=== PATIENT | female | born 1955 | race American Indian/Alaskan Native ===

== ENCOUNTER 2016-12-05 14:10 | Emergency (ER) | payer OTHER ==
[2016-12-05 14:36] VITALS: BP 136/58
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
[2016-12-05] MEDS ORDERED: TORADOL IM ONE (16:23)
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
== END 2016-12-05 18:18 | disposition home or self-care (01) ==
LOC: ED 14:10
DX: M25.561 Pain in right knee (principal); I10 Essential (primary) hypertension; M19.90 Unspecified osteoarthritis, unspecified site; E78.00 Pure hypercholesterolemia, unspecified; Z79.82 Long term (current) use of aspirin; V89.2XXD Person injured in unspecified motor-vehicle accident, traffic, subsequent encounter
CPT/HCPCS: 29505; 73562; 96372; 99283; J1885

== ENCOUNTER 2017-05-16 14:58 | Emergency (ER) | payer SELFPAY ==
[2017-05-16 15:03] VITALS: BP 164/65
--- NOTE | 2017-05-16 18:35 | Emergency Department Report ---
History of Present Illness - General Chief Complaint: Eye Problems Stated Complaint: BOTH EYES ITCHY/EAR ACHE Time Seen by Provider: 05/16/17 16:58 Source: patient Mode of arrival: Ambulatory Limitations: No Limitations - History of Present Illness Initial Comments: Patient is a 8-year-old [place] female who is presenting with bilateral eye burning. Patient states this has minimal drainage. His present for approximately a week. Patient has some mild congestion and sinus irritation as well. - Related Data Home Medications Medication Instructions Recorded Confirmed Last Taken Aspirin [Ecotrin] 81 mg PO 02/08/13 02/08/13 02/08/13 Biotin 5 mg PO DAILY 02/08/13 02/08/13 02/08/13 Ibuprofen [Motrin] 600 mg PO BID 02/08/13 02/08/13 02/08/13 Multivitamin [Multi Vitamin Daily] 02/08/13 02/08/13 02/08/13 [place]-3S/Dha/Epa/Fish Oil [Fish 1,200 mg 02/08/13 02/08/13 02/08/13 Oil EC 1,200 mg Softgel] Irbesartan/Hydrochlorothiazide 1 each PO DAILY 10/15/15 10/15/15 Unknown [Irbesartan-Hctz 150-12.5 mg Tb] Vortioxetine Hydrobromide 20 mg PO DAILY 10/15/15 10/15/15 Unknown [Trintellix] Previous Rx's Medication Instructions Recorded Last Taken Type Carvedilol [Coreg] 12.5 mg PO BID #60 tablet 03/25/14 Unknown Rx Carvedilol [Coreg] 12.5 mg PO BID #60 tablet 03/25/14 Unknown Rx Simvastatin 20 mg PO QHS #30 tablet 03/25/14 Unknown Rx Simvastatin [Zocor TAB] 20 mg PO QHS #30 tablet 03/25/14 Unknown Rx Naproxen [Naprosyn] 500 mg PO BID #20 tablet 10/15/15 Unknown Rx traMADol [Ultram] 50 mg PO Q6HR PRN #15 tablet 12/05/16 Unknown Rx Loratadine [Claritin] 10 mg PO DAILY #30 tablet 05/16/17 Unknown Rx Olopatadine HCl [Patanol] 5 ml OP BID #1 bottle 05/16/17 Unknown Rx Allergies Allergy/AdvReac Type Severity Reaction Status Date / Time No Known Allergies Allergy Verified 05/16/17 15:01 ED Review of Systems ROS: Stated complaint: BOTH EYES ITCHY/EAR ACHE Other details as noted in HPI Comment: All other systems reviewed and negative ED Past Medical Hx - Past Medical History Hx Hypertension: Yes Hx Arthritis: Yes Hx Psychiatric Treatment: Yes (DEPRESSION) Additional medical history: HIGH cholesteroL - Surgical History Additional Surgical History: C-sections X 2 - Social History Smoking Status: Never Smoker Substance Use Type: None - Medications Home Medications: Home Medications Medication Instructions Recorded Confirmed Last Taken Type Aspirin [Ecotrin] 81 mg PO 02/08/13 02/08/13 02/08/13 History Biotin 5 mg PO DAILY 02/08/13 02/08/13 02/08/13 History Ibuprofen [Motrin] 600 mg PO BID 02/08/13 02/08/13 02/08/13 History Multivitamin [Multi Vitamin Daily] 02/08/13 02/08/13 02/08/13 History [place]-3S/Dha/Epa/Fish Oil [Fish 1,200 mg 02/08/13 02/08/13 02/08/13 History Oil EC 1,200 mg Softgel] Carvedilol [Coreg] 12.5 mg PO BID #60 tablet 03/25/14 Unknown Rx Carvedilol [Coreg] 12.5 mg PO BID #60 tablet 03/25/14 Unknown Rx Simvastatin 20 mg PO QHS #30 tablet 03/25/14 Unknown Rx Simvastatin [Zocor TAB] 20 mg PO QHS #30 tablet 03/25/14 Unknown Rx Irbesartan/Hydrochlorothiazide 1 each PO DAILY 10/15/15 10/15/15 Unknown History [Irbesartan-Hctz 150-12.5 mg Tb] Naproxen [Naprosyn] 500 mg PO BID #20 tablet 10/15/15 Unknown Rx Vortioxetine Hydrobromide 20 mg PO DAILY 10/15/15 10/15/15 Unknown History [Trintellix] traMADol [Ultram] 50 mg PO Q6HR PRN #15 tablet 12/05/16 Unknown Rx Loratadine [Claritin] 10 mg PO DAILY #30 tablet 05/16/17 Unknown Rx Olopatadine HCl [Patanol] 5 ml OP BID #1 bottle 05/16/17 Unknown Rx ED Physical Exam - General Limitations: No Limitations General appearance: alert, in no apparent distress - Head Head exam: Present: atraumatic, normocephalic - Eye Eye exam: Present: normal appearance, conjunctival injection - ENT ENT exam: Present: mucous membranes moist - Neck Neck exam: Present: normal inspection - Respiratory Respiratory exam: Present: normal lung sounds bilaterally. Absent: respiratory distress, wheezes, rales, rhonchi - Cardiovascular Cardiovascular Exam: Present: regular rate, normal rhythm. Absent: systolic murmur, diastolic murmur, rubs, gallop - GI/Abdominal GI/Abdominal exam: Present: soft, normal bowel sounds - Extremities Exam Extremities exam: Present: normal inspection - Back Exam Back exam: Present: normal inspection - Neurological Exam Neurological exam: Present: alert, oriented X3 - Psychiatric Psychiatric exam: Present: normal affect, normal mood - Skin Skin exam: Present: warm, dry, intact, normal color. Absent: rash ED Course Vital Signs 05/16/17 15:01 Temperature 98.5 F Pulse Rate 69 Respiratory 18 Rate Blood Pressure 164/65 O2 Sat by Pulse 97 Oximetry ED Medical Decision Making - Medical Decision Making Patient will be treated for a mild allergic rhinitis and be discharged home Critical care attestation.: If time is entered above; I have spent that time in minutes in the direct care of this critically ill patient, excluding procedure time. ED Disposition Clinical Impression: Allergic rhinitis Disposition: DC-01 TO HOME OR SELFCARE Is pt being admited?: No Does the pt Need Aspirin: No Condition: Stable Instructions: Olopatadine (Into the eye), Allergic Rhinitis (ED), Conjunctivitis (ED) Prescriptions: Loratadine [Claritin] 10 mg PO DAILY #30 tablet Olopatadine HCl [Patanol] 5 ml OP BID #1 bottle
== END 2017-05-16 20:08 | disposition home or self-care (01) ==
LOC: ED 14:58
DX: J30.9 Allergic rhinitis, unspecified (principal); I10 Essential (primary) hypertension; M19.90 Unspecified osteoarthritis, unspecified site; E78.00 Pure hypercholesterolemia, unspecified
CPT/HCPCS: 99282

== ENCOUNTER 2017-11-06 00:42 | Emergency (ER) | payer SELFPAY ==
[2017-11-06] MEDS ORDERED: TORADOL ONE (02:27)
[2017-11-06] MEDS ORDERED: ZOFRAN ONE ×2 (02:28→06:36)
[2017-11-06] MEDS ORDERED: TORADOL IM ONE (02:37)
[2017-11-06] MEDS ORDERED: NACL 0.9% 1000 ML 1,000 ML IV ONE (02:37)
[2017-11-06] MEDS ORDERED: ZOFRAN IM ONE (02:39)
[2017-11-06 03:05] LABS: Basophils % (Auto) 0.4 % (0.0-1.8); Eosinophils # (Auto) 0.1 K/mm3 (0.0-0.4); Eosinophils % (Auto) 2.5 % (0.0-4.3); Hematocrit 39.7 % (30.3-42.9); Lymphocytes # (Auto) 2.8 K/mm3 (1.2-5.4); Lymphocytes % (Auto) 52.1 % (13.4-35.0); Mean Corpuscular HGB Conc 33 % (30-34); Mean Corpuscular Hemoglobin 27 pg (28-32); Mean Corpuscular Volume 83 fl (79-97); Monocytes # (Auto) 0.4 K/mm3 (0.0-0.8); Monocytes % (Auto) 6.8 % (0.0-7.3); Platelet Count 220 K/mm3 (140-440); Red Blood Count 4.81 M/mm3 (3.65-5.03); Red Cell Distribution Width 15.1 % (13.2-15.2)
[2017-11-06 03:25] LABS: Alanine Aminotransferase 148 units/L (7-56); Albumin 3.9 g/dL (3.9-5); BUN/Creatinine Ratio 10; Blood Urea Nitrogen 11 mg/dL (7-17); Calcium 9.5 mg/dL (8.4-10.2); Hemolysis Index 2; Lipase 25 units/L (13-60)
[2017-11-06 06:17] LABS: Bacteria,Urine 2+ /HPF (Negative); Bilirubin,Urine NEG (Negative); Blood,Urine NEG (Negative); Color,Urine Yellow (Yellow); Mucus,Urine FEW /HPF; Protein,Urine <15 mg/dL mg/dL (Negative)
[2017-11-06] MEDS ORDERED: MORPHINE IV ONE (06:34)
[2017-11-06] MEDS ORDERED: ZOFRAN IV ONE (06:34)
[2017-11-06] MEDS ORDERED: MORPHINE ONE (06:36)
--- NOTE | 2017-11-06 07:25 | Emergency Department Report ---
ED Abdominal Pain HPI - General Chief Complaint: Abdominal Pain Stated Complaint: CHEST PAIN,NAUSEA,ABDOMINAL PAIN Time Seen by Provider: 11/06/17 07:15 Source: patient Mode of arrival: Ambulatory Limitations: No Limitations - History of Present Illness Initial Comments: Patient is 62 years old morbidly obese -Spanish female with history of hypertension and arthritis, depression and history of gallbladder stones. Patient presented to the ER complaining of epigastric and right upper quadrant pain started last night. Patient stated that pain is sharp in nature and does not radiate, associated with nausea and vomiting. She denied any diarrhea or fever. MD Complaint: abdominal pain -: Last night Location: RUQ, epigastric Radiation: none Migration to: no migration Severity: moderate, severe Severity scale (0 -10): 10 Quality: sharp Consistency: intermittent Improves With: vomiting - Related Data Home Medications Medication Instructions Recorded Confirmed Last Taken Aspirin [Ecotrin] 81 mg PO 02/08/13 02/08/13 02/08/13 Biotin 5 mg PO DAILY 02/08/13 02/08/13 02/08/13 Ibuprofen [Motrin] 600 mg PO BID 02/08/13 02/08/13 02/08/13 Multivitamin [Multi Vitamin Daily] 02/08/13 02/08/13 02/08/13 [place]-3S/Dha/Epa/Fish Oil [Fish 1,200 mg 02/08/13 02/08/13 02/08/13 Oil EC 1,200 mg Softgel] Irbesartan/Hydrochlorothiazide 1 each PO DAILY 10/15/15 10/15/15 Unknown [Irbesartan-Hctz 150-12.5 mg Tb] Vortioxetine Hydrobromide 20 mg PO DAILY 10/15/15 10/15/15 Unknown [Trintellix] Previous Rx's Medication Instructions Recorded Last Taken Type Carvedilol [Coreg] 12.5 mg PO BID #60 tablet 03/25/14 Unknown Rx Carvedilol [Coreg] 12.5 mg PO BID #60 tablet 03/25/14 Unknown Rx Simvastatin 20 mg PO QHS #30 tablet 03/25/14 Unknown Rx Simvastatin [Zocor TAB] 20 mg PO QHS #30 tablet 03/25/14 Unknown Rx Naproxen [Naprosyn] 500 mg PO BID #20 tablet 10/15/15 Unknown Rx traMADol [Ultram] 50 mg PO Q6HR PRN #15 tablet 12/05/16 Unknown Rx Loratadine [Claritin] 10 mg PO DAILY #30 tablet 05/16/17 Unknown Rx Olopatadine HCl [Patanol] 5 ml OP BID #1 bottle 05/16/17 Unknown Rx Esomeprazole Magnesium [NexIUM] 40 mg PO QDAY #30 capsule. 11/06/17 Unknown Rx HYDROcodone/APAP 5-325 [[place] 1 each PO Q6HR PRN #14 tablet 11/06/17 Unknown Rx 5/325] Ondansetron [Zofran Odt] 4 mg PO Q8HR PRN #14 tab.rapdis 11/06/17 Unknown Rx Ursodiol (Nf) [Actigall (Nf)] 300 mg PO TID #90 capsule 11/06/17 Unknown Rx Allergies Allergy/AdvReac Type Severity Reaction Status Date / Time No Known Allergies Allergy Verified 05/16/17 15:01 ED Review of Systems ROS: Stated complaint: CHEST PAIN,NAUSEA,ABDOMINAL PAIN Other details as noted in HPI Comment: All other systems reviewed and negative Constitutional: denies: chills, fever Respiratory: denies: cough, orthopnea, shortness of breath, SOB with exertion, SOB at rest, wheezing Cardiovascular: denies: chest pain, palpitations, dyspnea on exertion, syncope, paroxysmal nocturnal dyspnea Gastrointestinal: abdominal pain, nausea, vomiting. denies: diarrhea, constipation, hematemesis, melena, hematochezia Genitourinary: denies: urgency, dysuria, frequency, hematuria, discharge, abnormal menses Skin: denies: rash Neurological: denies: headache, weakness, numbness, paresthesias, confusion, abnormal gait, vertigo Psychiatric: denies: auditory hallucinations, visual hallucinations, homicidal thoughts, suicidal thoughts ED Past Medical Hx - Past Medical History Hx Hypertension: Yes Hx Arthritis: Yes Hx Psychiatric Treatment: Yes (DEPRESSION) Additional medical history: HIGH cholesteroL, Morbid Obesity, GALLBLADDER DISEASE - Surgical History Additional Surgical History: C-sections X 2 - Social History Smoking Status: Never Smoker Substance Use Type: None - Medications Home Medications: Home Medications Medication Instructions Recorded Confirmed Last Taken Type Aspirin [Ecotrin] 81 mg PO 02/08/13 02/08/13 02/08/13 History Biotin 5 mg PO DAILY 02/08/13 02/08/13 02/08/13 History Ibuprofen [Motrin] 600 mg PO BID 02/08/13 02/08/13 02/08/13 History Multivitamin [Multi Vitamin Daily] 02/08/13 02/08/13 02/08/13 History [place]-3S/Dha/Epa/Fish Oil [Fish 1,200 mg 02/08/13 02/08/13 02/08/13 History Oil EC 1,200 mg Softgel] Carvedilol [Coreg] 12.5 mg PO BID #60 tablet 03/25/14 Unknown Rx Carvedilol [Coreg] 12.5 mg PO BID #60 tablet 03/25/14 Unknown Rx Simvastatin 20 mg PO QHS #30 tablet 03/25/14 Unknown Rx Simvastatin [Zocor TAB] 20 mg PO QHS #30 tablet 03/25/14 Unknown Rx Irbesartan/Hydrochlorothiazide 1 each PO DAILY 10/15/15 10/15/15 Unknown History [Irbesartan-Hctz 150-12.5 mg Tb] Naproxen [Naprosyn] 500 mg PO BID #20 tablet 10/15/15 Unknown Rx Vortioxetine Hydrobromide 20 mg PO DAILY 10/15/15 10/15/15 Unknown History [Trintellix] traMADol [Ultram] 50 mg PO Q6HR PRN #15 tablet 12/05/16 Unknown Rx Loratadine [Claritin] 10 mg PO DAILY #30 tablet 05/16/17 Unknown Rx Olopatadine HCl [Patanol] 5 ml OP BID #1 bottle 05/16/17 Unknown Rx Esomeprazole Magnesium [NexIUM] 40 mg PO QDAY #30 capsule. 11/06/17 Unknown Rx HYDROcodone/APAP 5-325 [[place] 1 each PO Q6HR PRN #14 tablet 11/06/17 Unknown Rx 5/325] Ondansetron [Zofran Odt] 4 mg PO Q8HR PRN #14 tab.rapdis 11/06/17 Unknown Rx Ursodiol (Nf) [Actigall (Nf)] 300 mg PO TID #90 capsule 11/06/17 Unknown Rx ED Physical Exam - General Limitations: No Limitations General appearance: alert, in no apparent distress - Head Head exam: Present: atraumatic, normocephalic, normal inspection - Eye Eye exam: Present: normal appearance, PERRL - ENT ENT exam: Present: normal exam, normal orophraynx, mucous membranes moist, normal external ear exam - Neck Neck exam: Present: normal inspection, full ROM. Absent: tenderness, meningismus, lymphadenopathy, thyromegaly - Respiratory Respiratory exam: Present: normal lung sounds bilaterally. Absent: respiratory distress, wheezes, rales, rhonchi, stridor, chest wall tenderness, accessory muscle use, decreased breath sounds, prolonged expiratory - Cardiovascular Cardiovascular Exam: Present: regular rate, normal rhythm, normal heart sounds - GI/Abdominal GI/Abdominal exam: Present: soft, tenderness (epigastric and right upper quadrant tenderness), normal bowel sounds. Absent: distended, guarding, rebound , rigid, organomegaly, mass, bruit, pulsatile mass, hernia - Extremities Exam Extremities exam: Present: normal inspection, full ROM, normal capillary refill. Absent: pedal edema, calf tenderness - Back Exam Back exam: Present: normal inspection, full ROM. Absent: tenderness, CVA tenderness (R), CVA tenderness (L), muscle spasm, paraspinal tenderness, vertebral tenderness, rash noted - Neurological Exam Neurological exam: Present: alert, oriented X3, CN II-XII intact, normal gait, reflexes normal - Skin Skin exam: Present: warm, dry, intact, normal color ED Course Vital Signs 11/06/17 11/06/17 11/06/17 00:56 05:58 07:10 Temperature 98.9 F 97.8 F Pulse Rate 67 59 L Respiratory 16 18 16 Rate Blood Pressure 140/107 Blood Pressure 124/86 [Left] O2 Sat by Pulse 97 98 Oximetry 11/06/17 08:30 Temperature Pulse Rate 68 Respiratory 16 Rate Blood Pressure Blood Pressure 204/72 [Left] O2 Sat by Pulse 99 Oximetry ED Medical Decision Making - Lab Data Result diagrams: 11/06/17 02:42 11/06/17 Unknown - Radiology Data Radiology results: report reviewed Referring Physician: MICHAEL ISLAS Patient Name: JOVANI VILLANUEVA Date of : 1955 Sex: Female Report Date: 2017-11-06 Report Status: Finalized Findings [facility] [address] [place] [address] Ultrasound Report Signed Patient: JOVANI VILLANUEVA MR#: [id number] : 1955 Acct:[id number] Age/Sex: 62 / F ADM Date: 11/06/17 Loc: ED Attending Dr: Ordering Physician: MICHAEL ISLAS Date of Service: 11/06/17 Procedure(s): US abdomen limited Accession Number(s): [id number] cc: MICHAEL ISLAS FINAL REPORT EXAM: US ABDOMEN LIMITED HISTORY: right upper quadrant pain COMPARISON: None. TECHNIQUE: Multiple transverse and longitudinal sonographic grayscale images of the right upper quadrant of the abdomen were obtained, supplemented with Doppler imaging. FINDINGS: Pancreas: Visualized portions are normal. Liver appearance: Heterogeneous and coarse echotexture. No focal internal lesion CBD: 10.2mm. Gallbladder: There are several gallstones, measuring up to 2.1 centimeters. No pericholecystic fluid or gallbladder wall thickening. Right kidney length: 8.2 cm. Right kidney appearance: No hydronephrosis. No echogenic focus or mass. Aorta: Normal. IMPRESSION: Cholelithiasis without evidence for cholecystitis. Dilated common bile duct measuring up to 10.2 millimeters. No intraluminal mass or stone is visualized. Coarsened echotexture of the liver. No focal internal lesion. Atrophic right kidney. Transcribed By: MOY Dictated By: BEKA SÁNCHEZ MD Electronically Authenticated By: BEKA SÁNCHEZ MD Signed Date/Time: 11/06/17955 DD/ 5 TD/TT: 11/06/17955 - Medical Decision Making Patient is 62 years old morbidly obese -Spanish female with history of hypertension and arthritis, depression and history of gallbladder stones. Patient presented to the ER complaining of epigastric and right upper quadrant pain started last night. Patient stated that pain is sharp in nature and does not radiate, associated with nausea and vomiting. She denied any diarrhea or fever. Patient stated that she is feeling better. Right lower quadrant ultrasound show choledocholithiasis was out evidence of acute cholecystitis. I advised patient to follow-up with Dr. Ferrell in the next 2-3 days. Critical care attestation.: If time is entered above; I have spent that time in minutes in the direct care of this critically ill patient, excluding procedure time. ED Disposition Clinical Impression: Abdominal pain, Cholelithiasis Disposition: - TO HOME OR SELFCARE Is pt being admited?: No Condition: Stable Instructions: Biliary Colic (ED), Abdominal Pain (ED) Prescriptions: Esomeprazole Magnesium [NexIUM] 40 mg PO QDAY #30 capsule. HYDROcodone/APAP 5-325 [[place] 5/325] 1 each PO Q6HR PRN #14 tablet PRN Reason: Pain Ondansetron [Zofran Odt] 4 mg PO Q8HR PRN #14 tab.rapdis PRN Reason: Nausea And Vomiting Ursodiol (Nf) [Actigall (Nf)] 300 mg PO TID #90 capsule Referrals: TONY FERRELL DO [Staff Physician] - 3-5 Days
[2017-11-06] MEDS ORDERED: NACL 0.9% 1000 ML 1,000 ML ONE (09:57)
--- NOTE | 2017-11-06 09:58 | Ultrasound Report ---
FINAL REPORT EXAM: US ABDOMEN LIMITED HISTORY: right upper quadrant pain COMPARISON: None. TECHNIQUE: Multiple transverse and longitudinal sonographic grayscale images of the right upper quadrant of the abdomen were obtained, supplemented with Doppler imaging. FINDINGS: Pancreas: Visualized portions are normal. Liver appearance: Heterogeneous and coarse echotexture. No focal internal lesion CBD: 10.2mm. Gallbladder: There are several gallstones, measuring up to 2.1 centimeters. No pericholecystic fluid or gallbladder wall thickening. Right kidney length: 8.2 cm. Right kidney appearance: No hydronephrosis. No echogenic focus or mass. Aorta: Normal. IMPRESSION: Cholelithiasis without evidence for cholecystitis. Dilated common bile duct measuring up to 10.2 millimeters. No intraluminal mass or stone is visualized. Coarsened echotexture of the liver. No focal internal lesion. Atrophic right kidney.
[2017-11-06] MEDS ORDERED: SUBLIMAZE ONE (12:09)
[2017-11-06] MEDS ORDERED: SUBLIMAZE IV ONE (12:10)
[2017-11-06 13:00] VITALS: BP 174/86
== END 2017-11-06 13:03 | disposition home or self-care (01) ==
LOC: ED 00:42
DX: K80.20 Calculus of gallbladder without cholecystitis without obstruction (principal); I10 Essential (primary) hypertension; M19.90 Unspecified osteoarthritis, unspecified site; F32.9 Major depressive disorder, single episode, unspecified; E78.00 Pure hypercholesterolemia, unspecified; E66.01 Morbid (severe) obesity due to excess calories
CPT/HCPCS: 36415; 76705; 80053; 81001; 83690; 84484; 85025; 93005; 93010; 96361; 96372; 96374; 96375; 99284; J1885; J2270; J2405; J3010; J7030

== ENCOUNTER 2021-04-13 09:10 | Emergency (ER) | payer SELFPAY ==
[2021-04-13] MEDS ORDERED: MORPHINE 4 MG/1 ML INJ IV ONE ×2 (09:18→11:40)
[2021-04-13] MEDS ORDERED: ONDANSETRON 4 MG/2 ML INJ IV ONE (09:18)
[2021-04-13] MEDS ORDERED: SODIUM CHLORIDE 0.9% 1000 ML 1,000 ML IV ONE (09:18)
[2021-04-13 10:44] LABS: Basophils % (Auto) 0.4 % (0.0-1.8); Eosinophils # (Auto) 0.1 K/mm3 (0.0-0.4); Eosinophils % (Auto) 0.8 % (0.0-4.3); Hematocrit 39.4 % (30.3-42.9); Lymphocytes # (Auto) 1.9 K/mm3 (1.2-5.4); Lymphocytes % (Auto) 23.1 % (13.4-35.0); Mean Corpuscular HGB Conc 33 % (30-34); Mean Corpuscular Volume 81 fl (79-97); Monocytes # (Auto) 0.4 K/mm3 (0.0-0.8); Monocytes % (Auto) 4.9 % (0.0-7.3); Platelet Count 291 K/mm3 (140-440); Red Blood Count 4.84 M/mm3 (3.65-5.03); Red Cell Distribution Width 14.5 % (13.2-15.2)
[2021-04-13 10:51] LABS: INR 0.92 (0.87-1.13)
[2021-04-13 11:05] LABS: Alanine Aminotransferase 17 units/L (7-56); Albumin 3.9 g/dL (3.9-5); BUN/Creatinine Ratio 20; Blood Urea Nitrogen 20 mg/dL (7-17); Calcium 9.4 mg/dL (8.4-10.2); Hemolysis Index 8
[2021-04-13 11:08] LABS: Bilirubin,Direct < 0.2 mg/dL (0-0.2)
[2021-04-13 12:21] LABS: Bacteria,Urine 1+ /HPF (Negative); WBC,Urine < 1.0 /HPF (0.0-6.0)
--- NOTE | 2021-04-13 12:33 | Cat Scan Report ---
CT ABDOMEN AND PELVIS WITH CONTRAST INDICATION / CLINICAL INFORMATION: pain OMNI 300 100 ML. TECHNIQUE: Axial CT images were obtained through the abdomen and pelvis after 100 cc of Omnipaque 300 IV contras t. Sagittal and coronal reformatted images. All CT scans at this location are performed using CT dose reduction for ALARA by means of automated exposure control. COMPARISON: None available. FINDINGS: LOWER CHEST: No significant abnormality. LIVER: No significant abnormality. 1.5 cm right hepatic lobe cyst is noted. GALLBLADDER: Cholelithiasis. A large gallstone measures up to 3 cm. Multiple smaller gallstones are a lso identified. No wall thickening, abnormal dilatation or pericholecystic fluid. BILE DUCTS: No significant abnormality. PANCREAS: No significant abnormality. SPLEEN: No significant abnormality. ADRENALS: No significant abnormality. RIGHT KIDNEY and URETER: No significant abnormality. LEFT KIDNEY and URETER: No significant abnormality. STOMACH and SMALL BOWEL: No significant abnormality. COLON: No significant abnormality. APPENDIX: No significant abnormality. PERITONEUM: No free fluid. No free air. No fluid collection. LYMPH NODES: No significant adenopathy. AORTA and ARTERIES: No significant abnormality. IVC and VEINS: No significant abnormality. URINARY BLADDER: No significant abnormality. REPRODUCTIVE ORGANS: The uterus appears tethered to the anterior pelvic wall which could represent a pelvic adhesion. The uterus and adnexa are otherwise unremarkable. ADDITIONAL FINDINGS: None. SKELETAL SYSTEM: Mild thoracolumbar spondylosis. L4-5 is the most affected level. IMPRESSION: Cholelithiasis but no convincing evidence for acute cholecystitis. Liver cyst. No acute inflammatory process is appreciated. Signer Name: Chang Huber Jr, MD Signed: 04/13/2021 12:28 PM Workstation Name: [id number]
[2021-04-13 12:39] LABS: Bilirubin,Urine Negative (Negative); Blood,Urine Negative (Negative); Color,Urine Straw (Yellow)
[2021-04-13 12:40] LABS: Protein,Urine <15 mg/dL mg/dL (Negative); Urobilinogen,Urine < 2.0 mg/dL (<2.0)
--- NOTE | 2021-04-13 12:57 | Emergency Department Report ---
ED Abdominal Pain HPI - General Chief Complaint: Abdominal Pain Stated Complaint: ABD PAIN Time Seen by Provider: 04/13/21 09:31 Source: EMS Mode of arrival: Stretcher Limitations: No Limitations - History of Present Illness Initial Comments: abd since 050, 11/21. N/VJohn GRIGGS Complaint: abdominal pain -: Gradual, hour(s) Location: diffuse Radiation: none Severity scale (0 -10): 10 Quality: cramping, aching Consistency: constant Improves With: eating Worsens With: nothing - Related Data Home Medications Medication Instructions Recorded Confirmed Last Taken Aspirin [Ecotrin] 81 mg PO QDAY 02/08/13 04/13/21 04/12/21 Biotin [Biotin 5mg] 5 mg PO DAILY 02/08/13 04/13/21 04/12/21 Multivitamin [Multi Vitamin Daily] 1 tab PO QDAY 02/08/13 04/13/21 04/12/21 [place]-3S/Dha/Epa/Fish Oil [Fish 1,200 mg PO QDAY 02/08/13 04/13/21 04/12/21 Oil EC 1,200 mg Softgel] Calcium Carbonate [Calcium] 600 mg PO QDAY 04/13/21 04/13/21 04/12/21 Cholecalciferol (Vitamin D3) 5,000 unit PO DAILY 04/13/21 04/13/21 04/12/21 [Vitamin D3] Cranberry Fruit Extract [Cranberry] 500 mg PO QDAY 04/13/21 04/13/21 04/12/21 Escitalopram Oxalate [Lexapro] 20 mg PO QDAY 04/13/21 04/13/21 04/12/21 Gabapentin [Neurontin] 300 mg PO Q8HR 04/13/21 04/13/21 04/12/21 Padmini Root [Padmini] 250 mg PO QDAY 04/13/21 04/13/21 04/12/21 Ibuprofen [Motrin] 800 mg PO Q8HR PRN 04/13/21 04/13/21 04/12/21 Loratadine [Allergy Relief] 10 mg PO QDAY 04/13/21 04/13/21 04/12/21 Magnesium 200 mg PO QDAY 04/13/21 04/13/21 04/12/21 Melatonin [Melatonin 10MG TAB] 10 mg PO QDAY 04/13/21 04/13/2104/12/22 Zinc [Zinc 50mg TAB] 50 mg PO QDAY 04/13/21 04/13/21 04/12/21 amLODIPine [Norvasc] 5 mg PO DAILY 04/13/21 04/13/21 04/12/21 lisinopriL [Zestril TAB] 40 mg PO QDAY 04/13/21 04/13/21 04/12/21 traMADoL [Ultram] 50 mg PO BID PRN 04/13/21 04/13/21 04/13/21 Previous Rx's Medication Instructions Recorded Last Taken Type Esomeprazole Magnesium [NexIUM] 40 mg PO QDAY #30 capsule. 11/06/17 04/12/21 Rx Allergies Allergy/AdvReac Type Severity Reaction Status Date / Time No Known Allergies Allergy Verified 04/13/21 12:09 ED Review of Systems ROS: Stated complaint: ABD PAIN Other details as noted in HPI Constitutional: denies: chills, fever Eyes: denies: eye pain, eye discharge, vision change ENT: denies: ear pain, throat pain Respiratory: denies: cough, shortness of breath, wheezing Cardiovascular: denies: chest pain, palpitations Endocrine: no symptoms reported Gastrointestinal: denies: abdominal pain, nausea, diarrhea Genitourinary: denies: urgency, dysuria, discharge Musculoskeletal: denies: back pain, joint swelling, arthralgia Skin: denies: rash, lesions Neurological: denies: headache, weakness, paresthesias Psychiatric: denies: anxiety, depression Hematological/Lymphatic: denies: easy bleeding, easy bruising ED Past Medical Hx - Past Medical History Hx Hypertension: Yes Hx Arthritis: Yes Hx Psychiatric Treatment: Yes (DEPRESSION) Additional medical history: HIGH cholesteroL, Morbid Obesity, GALLBLADDER DISEASE - Surgical History Additional Surgical History: C-sections X 2 - Social History Smoking Status: Unknown if ever smoked - Medications Home Medications: Home Medications Medication Instructions Recorded Confirmed Last Taken Type Aspirin [Ecotrin] 81 mg PO QDAY 02/08/13 04/13/21 04/12/21 History Biotin [Biotin 5mg] 5 mg PO DAILY 02/08/13 04/13/21 04/12/21 History Multivitamin [Multi Vitamin Daily] 1 tab PO QDAY 02/08/13 04/13/21 04/12/21 History [place]-3S/Dha/Epa/Fish Oil [Fish 1,200 mg PO QDAY 02/08/13 04/13/21 04/12/21 History Oil EC 1,200 mg Softgel] Esomeprazole Magnesium [NexIUM] 40 mg PO QDAY #30 capsule. 11/06/17 04/13/21 04/12/21 Rx Calcium Carbonate [Calcium] 600 mg PO QDAY 04/13/21 04/13/21 04/12/21 History Cholecalciferol (Vitamin D3) 5,000 unit PO DAILY 04/13/21 04/13/21 04/12/21 History [Vitamin D3] Cranberry Fruit Extract [Cranberry] 500 mg PO QDAY 04/13/21 04/13/21 04/12/21 History Escitalopram Oxalate [Lexapro] 20 mg PO QDAY 04/13/21 04/13/21 04/12/21 History Gabapentin [Neurontin] 300 mg PO Q8HR 04/13/21 04/13/21 04/12/21 History Padmini Root [Padmini] 250 mg PO QDAY 04/13/21 04/13/21 04/12/21 History Ibuprofen [Motrin] 800 mg PO Q8HR PRN 04/13/21 04/13/21 04/12/21 History Loratadine [Allergy Relief] 10 mg PO QDAY 04/13/21 04/13/21 04/12/21 History Magnesium 200 mg PO QDAY 04/13/21 04/13/21 04/12/21 History Melatonin [Melatonin 10MG TAB] 10 mg PO QDAY 04/13/21 04/13/21 04/12/21 History Zinc [Zinc 50mg TAB] 50 mg PO QDAY 04/13/21 04/13/21 04/12/21 History amLODIPine [Norvasc] 5 mg PO DAILY 04/13/21 04/13/21 04/12/21 History lisinopriL [Zestril TAB] 40 mg PO QDAY 04/13/21 04/13/21 04/12/21 History traMADoL [Ultram] 50 mg PO BID PRN 04/13/21 04/13/21 04/13/21 History ED Physical Exam - General Limitations: No Limitations ED Course Vital Signs 04/13/21 04/13/21 04/13/21 09:38 09:46 10:00 Blood Pressure 182/96 147/50 O2 Sat by Pulse 100 100 99 Oximetry 04/13/21 04/13/21 04/13/21 10:16 10:42 10:46 Blood Pressure 147/50 147/50 144/60 O2 Sat by Pulse 92 97 96 Oximetry - Reevaluation(s) Reevaluation #1: 04/13/21 12:57 ct scan showed gall stones, no fever normal LFTs lipase pain controlled, will send to surgery OP ED Medical Decision Making - Lab Data Result diagrams: 04/13/21 09:43 04/13/21 09:43 Critical care attestation.: If time is entered above; I have spent that time in minutes in the direct care of this critically ill patient, excluding procedure time. ED Disposition Clinical Impression: Gall stones Disposition: 01 HOME / SELF CARE / HOMELESS Is pt being admited?: No Does the pt Need Aspirin: No Condition: Stable Instructions: Cholelithiasis, Abdominal Pain (ED) Referrals: PRIMARY CARE, [Primary Care Provider] - 3-5 Days TONY FERRELL DO [Staff Physician] - 3-5 Days
[2021-04-13 13:42] VITALS: BP 152/77
== END 2021-04-13 13:39 | disposition home or self-care (01) ==
LOC: ED 09:10
DX: K80.80 Other cholelithiasis without obstruction (principal); I10 Essential (primary) hypertension
CPT/HCPCS: 36415; 74177; 80048; 80076; 81001; 82150; 83690; 85025; 85610; 96361; 96374; 96375; 96376; 99284; J2270; J2405; J7030; Q9967; Q0162